=== PATIENT | female | born 1940 | race Caucasian/White ===

== ENCOUNTER 2018-08-02 14:14 | Inpatient (IN) ==
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
[2018-08-02 15:31] LABS: BASO# 0.03 X1000 (0.0-0.2); BASO% 0.5 % (0.0-0.8); EOS# 0.15 X1000 (0.0-0.7); EOS% 2.6 % (0.0-10.0); HEMATOCRIT 28.1 % (37.0-47.0); HEMOGLOBIN 9.2 g/dL (12.0-16.0); IMM GRAN# 0.09 X1000 (0.0-0.04); IMM GRAN% 1.6 % (0.0-0.5); LYMPH# 0.94 X1000 (1.2-3.4); LYMPH% 16.2 % (20.5-51.1); MCH 29.9 PG (27-31); MCHC 32.7 g/dL (33-37); MCV 91.2 FL (81-99); MONO# 0.76 X1000 (0.11-0.59); MONO% 13.1 % (1.7-9.3); MPV 8.9 FL (7.4-10.4); NEUT# 3.82 X1000 (1.4-6.5); PLT 298 X1000 (130-400); RBC 3.08 XMIL (4.2-5.4); RDW 14.3 % (11.5-14.5); WBC 5.79 X1000 (4.8-10.8)
[2018-08-02] MEDS ORDERED: ALBUTEROL NEB INH ONE (15:44)
[2018-08-02 15:46] LABS: AGAP 13; ALBUMIN 2.7 g/dL (3.5-5.0); ALKALINE PHOSPHATASE 82 U/L (32-104); BUN 21 mg/dL (8-22); CALCIUM 7.8 mg/dL (8.8-10.2); CHLORIDE 99 mmol/L (98-107); COSMO 272; CREATININE 0.7 mg/dL (0.5-0.9); ESTIMATED GFR > 60; GLUCOSE 88 mg/dL (70-104); GOT 53 U/L (10-30); GPT 33 U/L (10-36); POTASSIUM 3.5 mmol/L (3.5-5.1); SODIUM 135 mmol/L (136-145); TCO2 23 mmol/L (25-35); TOTAL BILIRUBIN 1.48 mg/dL (0.20-1.00); TOTAL PROTEIN 5.3 g/dL (6.3-8.3)
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
[2018-08-02] MEDS ORDERED: TYLENOL PO PRN (16:55)
[2018-08-02] MEDS ORDERED: DULCOLAX PR ONE (18:14)
[2018-08-02 18:27] LABS: URINE SOURCE CLEAN CATCH
[2018-08-02 18:37] LABS: BILIRUBIN URINE NEGATIVE (NEGATIVE); BLOOD URINE NEGATIVE (NEGATIVE); COLOR YELLOW; GLUCOSE URINE NEGATIVE (NEGATIVE); KETONE URINE TRACE mg/dL (NEGATIVE); LEUKOCYTES URINE SMALL (NEGATIVE); NITRITE URINE NEGATIVE (NEGATIVE); PH URINE 5.5; PROTEIN URINE TRACE mg/dL (NEGATIVE); SP GRAVITY URINE 1.014; TURBIDITY URINE HAZY (CLEAR); UROBILINOGEN URINE 3 mg/dL (NORMAL)
[2018-08-02 18:38] LABS: UR EPITHELIAL CELLS >10 /HPF (<10); URINE BACTERIA NEGATIVE /HPF; URINE RBC <10 /HPF (<10); URINE WBC <10 /HPF (<10)
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
[2018-08-02] MEDS: MUCOMYST 20% INH SCH (20:10)
[2018-08-02] MEDS: PULMICORT INH SCH (20:10)
[2018-08-02] MEDS: DUONEB (A & A) INH SCH ×2 (20:10→23:20)
[2018-08-02] MEDS: NS 1,000 ML IV SCH (21:03)
[2018-08-02] MEDS: ULTRAM PO PRN (21:15)
[2018-08-02] MEDS: MUCINEX PO SCH (21:15)
[2018-08-02] MEDS: ROCEPHIN 1 GM in NS 50 ML IV SCH (21:15)
[2018-08-02] MEDS: PERICOLACE PO SCH (21:15)
[2018-08-03] MEDS: DUONEB (A & A) INH SCH ×6 (03:30→23:30)
[2018-08-03] MEDS: MUCOMYST 20% INH SCH ×2 (07:29→19:30)
[2018-08-03] MEDS: PULMICORT INH SCH ×2 (07:29→19:30)
[2018-08-03 07:40] LABS: AGAP 12; ALB/GLOB RATIO 1.2; ALBUMIN 2.7 g/dL (3.5-5.0); ALKALINE PHOSPHATASE 72 U/L (32-104); BASO# 0.02 X1000 (0.0-0.2); BASO% 0.3 % (0.0-0.8); BUN 19 mg/dL (8-22); CALCIUM 7.5 mg/dL (8.8-10.2); CHLORIDE 98 mmol/L (98-107); COSMO 265; CREATININE 0.6 mg/dL (0.5-0.9); EOS# 0.07 X1000 (0.0-0.7); ESTIMATED GFR > 60; GLUCOSE 97 mg/dL (70-104); GOT 34 U/L (10-30); GPT 27 U/L (10-36); HEMOGLOBIN 8.4 g/dL (12.0-16.0); IMM GRAN# 0.05 X1000 (0.0-0.04); IMM GRAN% 0.7 % (0.0-0.5); LYMPH# 0.78 X1000 (1.2-3.4); MCH 29.3 PG (27-31); MCHC 32.3 g/dL (33-37); MCV 90.6 FL (81-99); MONO# 0.63 X1000 (0.11-0.59); MONO% 8.9 % (1.7-9.3); MPV 8.8 FL (7.4-10.4); NEUT# 5.53 X1000 (1.4-6.5); NEUT% 78.1 % (42.2-75.2); PLT 291 X1000 (130-400); POTASSIUM 3.6 mmol/L (3.5-5.1); RBC 2.87 XMIL (4.2-5.4); RDW 14.5 % (11.5-14.5); SODIUM 131 mmol/L (136-145); TCO2 21 mmol/L (25-35); TOTAL BILIRUBIN 1.22 mg/dL (0.20-1.00); TOTAL PROTEIN 4.9 g/dL (6.3-8.3); WBC 7.08 X1000 (4.8-10.8)
[2018-08-03] MEDS: PERICOLACE PO SCH ×2 (08:16→22:48)
[2018-08-03] MEDS: LOTREL 5/10 MG PO SCH (08:16)
[2018-08-03] MEDS: NAMENDA PO SCH (08:16)
[2018-08-03] MEDS: ZETIA PO SCH (08:16)
[2018-08-03] MEDS: CRESTOR PO SCH (08:16)
[2018-08-03] MEDS: MIRALAX PO SCH (08:16)
[2018-08-03] MEDS: MUCINEX PO SCH ×2 (08:17→22:49)
[2018-08-03] MEDS: LOVENOX SUBQ SCH (08:17)
[2018-08-03 10:52] LABS: ALLEN TEST YES; BE -0.8 mmoll (-3.0-3.0); BLOOD TYPE ARTERIAL; HCO3-(ACT) 24.2 mmoll (20.0-26.0); METHB 0.7 % (0.0-1.5); O2(CT) 11.7 mL/dL (15.0-23.0); O2HB 92.7 % (95.0-99.0); PCO2(98.6) 30 mmHg (35-45); PO2(98.6) 62 mmHg (60-100); SAMPLE BLOOD; SAO2 95.8 % (95.0-100.0); THB 8.9 g/dL (11.5-17.4); pH(98.6) 7.48 (7.35-7.45)
[2018-08-03 10:53] LABS: MODALITY CANNULA
[2018-08-03] MEDS: NS 1,000 ML IV SCH (11:23)
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
[2018-08-03] MEDS: ROCEPHIN 1 GM in NS 50 ML IV SCH (22:48)
[2018-08-03] MEDS: ULTRAM PO PRN (22:49)
[2018-08-03] MEDS: DULCOLAX PR PRN (22:49)
[2018-08-04] MEDS: TRAVATAN 0.004% OPH SOLN BOTH EYES SCH ×2 (02:14→21:08)
[2018-08-04] MEDS: NS 1,000 ML IV SCH ×2 (02:18→17:03)
[2018-08-04] MEDS: DUONEB (A & A) INH SCH ×6 (03:00→23:04)
[2018-08-04] MEDS: PULMICORT INH SCH ×2 (07:34→19:03)
[2018-08-04] MEDS: MUCOMYST 20% INH SCH ×2 (07:35→19:03)
[2018-08-04] MEDS: MIRALAX PO SCH (10:35)
[2018-08-04] MEDS: CRESTOR PO SCH (10:35)
[2018-08-04] MEDS: MUCINEX PO SCH ×2 (10:35→21:06)
[2018-08-04] MEDS: PERICOLACE PO SCH ×2 (10:35→21:05)
[2018-08-04] MEDS: LOVENOX SUBQ SCH (10:36)
[2018-08-04] MEDS: LOTREL 5/10 MG PO SCH (10:36)
[2018-08-04] MEDS: DULCOLAX PR PRN (10:36)
[2018-08-04] MEDS: NAMENDA PO SCH (10:36)
[2018-08-04] MEDS: ZETIA PO SCH (10:36)
[2018-08-04 12:44] LABS: AGAP 13; BUN 14 mg/dL (8-22); CALCIUM 7.5 mg/dL (8.8-10.2); CHLORIDE 103 mmol/L (98-107); COSMO 274; CREATININE 0.5 mg/dL (0.5-0.9); ESTIMATED GFR > 60; GLUCOSE 95 mg/dL (70-104); POTASSIUM 3.3 mmol/L (3.5-5.1); SODIUM 137 mmol/L (136-145); TCO2 21 mmol/L (25-35)
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
[2018-08-04] MEDS ORDERED: KLOR-CON PO ONE (15:22)
[2018-08-04] MEDS: NORCO-5 PO PRN (17:04)
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
[2018-08-04] MEDS: ROCEPHIN 1 GM in NS 50 ML IV SCH (21:06)
[2018-08-05] MEDS ORDERED: CALMOSEPTINE OINTMENT TOP PRN (03:15)
[2018-08-05] MEDS: DUONEB (A & A) INH SCH ×6 (03:19→23:30)
[2018-08-05] MEDS: NS 1,000 ML IV SCH ×2 (05:58→21:24)
[2018-08-05 07:07] LABS: BASO# 0.02 X1000 (0.0-0.2); BASO% 0.3 % (0.0-0.8); EOS# 0.27 X1000 (0.0-0.7); EOS% 3.5 % (0.0-10.0); HEMATOCRIT 27.8 % (37.0-47.0); HEMOGLOBIN 8.9 g/dL (12.0-16.0); IMM GRAN# 0.05 X1000 (0.0-0.04); IMM GRAN% 0.6 % (0.0-0.5); LYMPH# 1.27 X1000 (1.2-3.4); LYMPH% 16.3 % (20.5-51.1); MCH 29.5 PG (27-31); MCV 92.1 FL (81-99); MONO# 0.66 X1000 (0.11-0.59); MONO% 8.5 % (1.7-9.3); NEUT% 70.8 % (42.2-75.2); PLT 323 X1000 (130-400); RBC 3.02 XMIL (4.2-5.4); RDW 15.5 % (11.5-14.5); WBC 7.77 X1000 (4.8-10.8)
[2018-08-05] MEDS: PULMICORT INH SCH ×2 (08:00→19:25)
[2018-08-05] MEDS: MUCOMYST 20% INH SCH ×2 (08:00→19:25)
[2018-08-05 08:07] LABS: AGAP 12; BUN 10 mg/dL (8-22); CHLORIDE 107 mmol/L (98-107); COSMO 277; CREATININE 0.6 mg/dL (0.5-0.9); ESTIMATED GFR > 60; GLUCOSE 102 mg/dL (70-104); POTASSIUM 3.6 mmol/L (3.5-5.1); SODIUM 139 mmol/L (136-145); TCO2 20 mmol/L (25-35)
[2018-08-05] MEDS: LOVENOX SUBQ SCH (09:35)
[2018-08-05] MEDS: MIRALAX PO SCH (09:36)
[2018-08-05] MEDS: CRESTOR PO SCH (09:36)
[2018-08-05] MEDS: ZETIA PO SCH (09:37)
[2018-08-05] MEDS: PERICOLACE PO SCH ×2 (09:37→21:34)
[2018-08-05] MEDS: MUCINEX PO SCH ×2 (09:37→21:34)
[2018-08-05] MEDS: NAMENDA PO SCH (09:37)
[2018-08-05] MEDS: LOTREL 5/10 MG PO SCH (09:44)
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
--- NOTE | 2018-08-05 12:55 | Diag Imaging Result Doc PS360 ---
EXAM: CHEST-1 VIEW HISTORY: SOB TECHNIQUE: Chest single view COMPARISON: 08/02/2018 FINDINGS: There is a small left pleural effusion on the current exam. There is atelectasis in the left lung base. Mild increased perihilar markings persist and are unchanged. There are multiple right lateral rib fractures. No pneumothoraces. No cardiomegaly. Mild vascular distention. IMPRESSION: Right pleural effusion has developed in the left lung base with atelectasis and/or infiltrates. Electronically signed by Adelso Das 08/05/2018 12:53 PM
[2018-08-05] MEDS: SODIUM CHLORIDE 0.9% INJ SCH (16:48)
[2018-08-05] MEDS: NORCO-5 PO PRN (16:48)
[2018-08-05] MEDS: PROTONIX IV SCH (16:48)
[2018-08-05] MEDS: DULCOLAX PR PRN (21:27)
[2018-08-05] MEDS: ROCEPHIN 1 GM in NS 50 ML IV SCH (21:34)
[2018-08-05] MEDS: TRAVATAN 0.004% OPH SOLN BOTH EYES SCH (21:35)
[2018-08-06] MEDS: DUONEB (A & A) INH SCH ×6 (03:50→22:56)
--- NOTE | 2018-08-06 07:17 | Diag Imaging Result Doc PS360 ---
EXAM: CHEST-1 VIEW 08/06/2018 HISTORY: SOB TECHNIQUE: AP portable at 0558 COMMENT: There is hazy pulmonary edema over both lungs and denser opacity in the retrocardiac region of the left lower lobe. The heart size does not appear to be enlarged. Compared to 08/05/2018 the pulmonary edema is worse. IMPRESSION: Worsened pulmonary edema and/or pneumonia. Electronically signed by Tulio Bashir 08/06/2018 7:15 AM
[2018-08-06] MEDS: MUCOMYST 20% INH SCH ×2 (07:23→19:57)
[2018-08-06] MEDS: PULMICORT INH SCH ×2 (07:23→19:57)
[2018-08-06 07:39] LABS: BASO# 0.03 X1000 (0.0-0.2); BASO% 0.3 % (0.0-0.8); EOS# 0.25 X1000 (0.0-0.7); EOS% 2.4 % (0.0-10.0); HEMOGLOBIN 9.2 g/dL (12.0-16.0); IMM GRAN# 0.06 X1000 (0.0-0.04); IMM GRAN% 0.6 % (0.0-0.5); LYMPH# 1.28 X1000 (1.2-3.4); LYMPH% 12.4 % (20.5-51.1); MCH 29.3 PG (27-31); MCHC 31.7 g/dL (33-37); MCV 92.4 FL (81-99); MONO# 0.79 X1000 (0.11-0.59); MONO% 7.6 % (1.7-9.3); NEUT# 7.94 X1000 (1.4-6.5); NEUT% 76.7 % (42.2-75.2); PLT 351 X1000 (130-400); RBC 3.14 XMIL (4.2-5.4); WBC 10.35 X1000 (4.8-10.8)
[2018-08-06 08:09] LABS: AGAP 12; BUN 9 mg/dL (8-22); CALCIUM 7.8 mg/dL (8.8-10.2); CHLORIDE 105 mmol/L (98-107); COSMO 273; CREATININE 0.6 mg/dL (0.5-0.9); ESTIMATED GFR > 60; GLUCOSE 106 mg/dL (70-104); POTASSIUM 3.4 mmol/L (3.5-5.1); SODIUM 137 mmol/L (136-145); TCO2 20 mmol/L (25-35)
[2018-08-06] MEDS ORDERED: KLOR-CON PO ONE (08:19)
[2018-08-06] MEDS: CRESTOR PO SCH (10:10)
[2018-08-06] MEDS: PERICOLACE PO SCH ×2 (10:10→20:45)
[2018-08-06] MEDS: ZETIA PO SCH (10:10)
[2018-08-06] MEDS: LOTREL 5/10 MG PO SCH (10:11)
[2018-08-06] MEDS: NAMENDA PO SCH (10:11)
[2018-08-06] MEDS: MUCINEX PO SCH ×2 (10:12→20:45)
[2018-08-06] MEDS: MIRALAX PO SCH (10:12)
[2018-08-06] MEDS: LOVENOX SUBQ SCH (10:12)
[2018-08-06] MEDS ORDERED: ZYVOX 600 MG/D5W 600 MG/300 ML IVPB IV SCH (10:30)
[2018-08-06] MEDS ORDERED: MAXIPIME 2 GM in NS 100 ML IV SCH (13:00)
--- NOTE | 2018-08-06 14:21 | CONSULTATION ---
DATE OF CONSULTATION: 08/06/2018 CONCLUSION: The patient has bilateral infiltrates. I think that they do represent pneumonia, but there could be a component also of pulmonary venous congestion. Her latest chest x-ray shows the infiltrates are worsening. RECOMMENDATIONS: I agree with the decision to change the patient from Rocephin to a combination of Zyvox and cefepime. I have changed the Zyvox to p.o. and I have increased the cefepime to 2 g IV every 8 hours. DISCUSSION: The patient in the past approximately 5-6 days ago started coughing and wheezing. She did not have fever or shaking chills and she did not produce any sputum. Associated with the coughing and wheezing. The patient has been anorectic. She has also had a decreased frequency of passing stool. The patient's studies [place] [address], hemoglobin 9.2, and platelet count 351,000. Creatinine is 0.6, GFR is greater than 60. Blood cultures are negative. Urine culture was mixed. Chest x-ray, as mentioned above, shows worsening infiltrates. PAST MEDICAL HISTORY/REVIEW OF SYSTEMS: Eyes and Ears: She sees and hears okay. Neck: No stiffness. Respiratory: See present illness. Gastrointestinal: Present illness also. Genitourinary: No dysuria or flank pain. Cardiovascular: No chest pain or palpitations. Bones, joints, muscles: No swollen joints or myalgias. Endocrine: No diabetes or thyroid disease. Neurologic: No motor or sensory loss. No seizures. GOSPEL WORKER HISTORY: She is a 3, para 3, AB 0. She has had a hysterectomy and tubal ligation. PREVIOUS HOSPITALIZATIONS/OPERATIONS: She has had 3 labor and deliveries, a hysterectomy, tubal ligation, surgery on her right hip which was fractured, placement of a coronary artery stent. The patient fractured right hip and it was operated on. She has had placement of a coronary artery stent. She has also had 3 back surgeries. The patient recently had to have a left chest tube placed. MEDICAL DISEASES: Positive for hypertension. Negative for diabetes or stroke. INFECTIOUS DISEASE HISTORY: Positive for pneumonia and UTI. FAMILY HISTORY: Positive for diabetes mellitus, hypertension, myocardial infarction, stroke, and cancer. SOCIAL HISTORY[place] . She has a dog as a pet. She does not smoke cigarettes, drink alcoholic beverages or abuse drugs. ALLERGIES: She has no known drug allergies. HOME MEDICATIONS INCLUDE THE FOLLOWING: Ezetimibe, amlodipine/benazepril, also patient is taking memantine, methocarbamol, Lopressor, rosuvastatin and Travatan. PHYSICAL EXAMINATION: Vital Signs: Temperature is 97.4 degrees, pulse 90, respirations 14, blood pressure 100/70. Patient is 5 feet 3 inches tall, weighs 163 pounds. General: This is a slightly obese elderly female. She is in no acute distress. Head/eyes/ears/ nose/throat: She can hear my spoken words and see near objects. She does not have any white patches in her mouth. Neck: No meningismus. Lungs: There were bilateral rhonchi. Cardiovascular: Heart rate is regular. Abdomen: Soft and nontender. Extremities: No erythema. There is some leg edema bilaterally. Neurologic: The patient is awake. She can move her extremities. There is no tremor. The patient can move her arms and legs. The patient's memory as regarding her medical history was slightly decreased. Integument: No rash noted. Thank you for the consult. cc: Tavo Navarro MD [facility] INSANEKenyatta
[2018-08-06] MEDS: LASIX IV SCH (16:26)
[2018-08-06] MEDS: SODIUM CHLORIDE 0.9% INJ SCH (16:26)
[2018-08-06] MEDS: MAXIPIME 2 GM in NS 100 ML IV SCH (16:26)
[2018-08-06] MEDS: PROTONIX IV SCH (16:27)
[2018-08-06] MEDS: NORCO-5 PO PRN (16:40)
--- NOTE | 2018-08-06 19:47 | PROGRESS NOTE ---
DATE: 08/06/2018 SUBJECTIVE: The patient is resting comfortably in bed. She states that she still feels short of breath and has some rattling in her chest. OBJECTIVE: Vital Signs: Temperature 98.9 degrees, blood pressure 115/67, heart rate 92, respirations 18, oxygen saturation 98% on 3 L nasal cannula. General: This is a chronically ill- appearing elderly female, lying in bed, in no acute distress. Heart: S1, S2 normal. Lungs: Equal air entry bilaterally. No crackles. No rales. Abdomen: Positive bowel sounds. Soft, nontender, nondistended. Extremities: No edema, no cyanosis. Neurologic: The patient is alert and oriented. LABS: White blood cell count 10, hemoglobin 9.2, hematocrit 29, platelets 351,000. Sodium 137, potassium 3.4, chloride 105, CO2 20, BUN 9, creatinine 0.6, glucose 106, calcium 7.8. ASSESSMENT AND PLAN: 1. Pneumonia. The patient's IV antibiotics were adjusted. Further management as per Dr. Navarro. 2. Acute pulmonary edema. We will start the patient on diuretic therapy. 3. Hypokalemia. We will replace the patient's potassium. 4. Severe protein calorie malnutrition. Continue the current diet. 5. Dementia. Continue on Namenda. 6. Gastrointestinal prophylaxis. Continue on Protonix. 7. Deep vein thrombosis prophylaxis. Continue on Lovenox. cc: Bella Raines MD
[2018-08-06] MEDS: ZYVOX PO SCH (20:46)
[2018-08-06] MEDS: TRAVATAN 0.004% OPH SOLN BOTH EYES SCH (20:47)
[2018-08-07] MEDS: MAXIPIME 2 GM in NS 100 ML IV SCH ×3 (00:54→15:40)
[2018-08-07] MEDS: DUONEB (A & A) INH SCH ×6 (03:16→23:00)
[2018-08-07] MEDS: LASIX IV SCH ×2 (04:54→15:44)
[2018-08-07] MEDS: PULMICORT INH SCH ×2 (07:23→19:20)
[2018-08-07] MEDS: MUCOMYST 20% INH SCH ×2 (07:24→19:20)
[2018-08-07 07:29] LABS: BASO# 0.02 X1000 (0.0-0.2); BASO% 0.3 % (0.0-0.8); EOS# 0.22 X1000 (0.0-0.7); HEMATOCRIT 30.7 % (37.0-47.0); HEMOGLOBIN 9.9 g/dL (12.0-16.0); IMM GRAN# 0.03 X1000 (0.0-0.04); IMM GRAN% 0.4 % (0.0-0.5); LYMPH# 1.13 X1000 (1.2-3.4); LYMPH% 15.2 % (20.5-51.1); MCH 29.8 PG (27-31); MCHC 32.2 g/dL (33-37); MCV 92.5 FL (81-99); MONO# 0.65 X1000 (0.11-0.59); MONO% 8.8 % (1.7-9.3); MPV 9.1 FL (7.4-10.4); NEUT# 5.37 X1000 (1.4-6.5); NEUT% 72.3 % (42.2-75.2); PLT 379 X1000 (130-400); RBC 3.32 XMIL (4.2-5.4); RDW 15.9 % (11.5-14.5); WBC 7.42 X1000 (4.8-10.8)
[2018-08-07 07:42] LABS: AGAP 11; BUN 9 mg/dL (8-22); CALCIUM 8.5 mg/dL (8.8-10.2); CHLORIDE 103 mmol/L (98-107); COSMO 271; CREATININE 0.7 mg/dL (0.5-0.9); ESTIMATED GFR > 60; GLUCOSE 110 mg/dL (70-104); MAGNESIUM 1.6 mg/dL (1.5-2.7); PHOSPHORUS 3.6 mg/dL (2.7-4.5); POTASSIUM 3.4 mmol/L (3.5-5.1); SODIUM 136 mmol/L (136-145); TCO2 22 mmol/L (25-35)
--- NOTE | 2018-08-07 07:48 | Diag Imaging Result Doc PS360 ---
EXAM: CHEST-PORTABLE INDICATION: dyspnea TECHNIQUE: One view COMPARISON: 08/06/2018 FINDINGS: The mild opacities seen bilaterally with a basilar predominance are approximately stable. No new consolidation is identified. Cardiac silhouette is stable. IMPRESSION: Essentially stable chest. Electronically signed by Pete Mccord 08/07/2018 7:46 AM
[2018-08-07 08:21] LABS: ALLEN TEST NO; BE 0.8 mmoll (-3.0-3.0); BLOOD TYPE ARTERIAL; HCO3-(ACT) 25.5 mmoll (20.0-26.0); METHB 1.2 % (0.0-1.5); O2(CT) 14.2 mL/dL (15.0-23.0); PCO2(98.6) 30 mmHg (35-45); PO2(98.6) 64 mmHg (60-100); SAMPLE BLOOD; SAO2 96.2 % (95.0-100.0); THB 10.8 g/dL (11.5-17.4)
[2018-08-07 08:22] LABS: MODALITY CANNULA
--- NOTE | 2018-08-07 08:44 | ECHO REPORT ---
ORDER DATE: 08/06/2018 MEASUREMENTS: Left ventricle end-diastolic 3.6. End systolic diameter 2.5, septal thickness 1.1. Aortic root 2.9. Left atrium 3.8. SUMMARY: 1. Very difficult study for interpretation and limited study. 2. Aortic valve is not well imaged, but appears to be sclerotic. Moderately heavy mitral annular calcification is demonstrated. There is mild mitral regurgitation. Tricuspid valve is without evidence of structural abnormality. Pulmonic valve is not seen. Aortic root is grossly normal in size. 3. Grossly normal left ventricular dimensions suggested. Estimated left ventricular ejection fraction appears to be at least 50%. Regional wall motion analysis is challenging given limitations of the study. Left atrium, right atrium, right ventricle are grossly normal in size. 4. No pericardial effusion. 5. Appearance of inferior vena cava suggests normal central venous pressure. cc: MD Bella Paula MD
[2018-08-07] MEDS: LOTREL 5/10 MG PO SCH (08:50)
[2018-08-07] MEDS: MIRALAX PO SCH (08:51)
[2018-08-07] MEDS: MUCINEX PO SCH ×2 (08:51→21:41)
[2018-08-07] MEDS: ZYVOX PO SCH (08:52)
[2018-08-07] MEDS: CRESTOR PO SCH (08:52)
[2018-08-07] MEDS: PERICOLACE PO SCH ×2 (08:52→21:41)
[2018-08-07] MEDS: ZETIA PO SCH (08:52)
[2018-08-07] MEDS: NAMENDA PO SCH (08:52)
[2018-08-07] MEDS: LOVENOX SUBQ SCH (08:53)
--- NOTE | 2018-08-07 11:15 | PROGRESS NOTE ---
DATE: 08/07/2018 SUBJECTIVE: The patient is resting comfortably in bed. She complains of wheezing and shortness of breath. OBJECTIVE: Vital Signs: Temperature 97.9, blood pressure 163/59, heart rate 77, respirations 19, O2 saturations 96% on 3 L nasal cannula output. General: This is a chronically ill-appearing, elderly female, lying in bed in no acute distress. Head: Normocephalic, atraumatic. Heart: S1, S2 normal. Regular rate and rhythm. Lungs: Coarse breath sounds with rhonchi and wheezes. Abdomen: Positive bowel sounds. Soft, nontender, nondistended. Extremities: 1+ edema. No cyanosis. No calf tenderness. Neurologic: The patient is alert and oriented x3. LABS: Sodium 136, potassium 3.4, chloride 103, CO2 of 22, BUN 9, creatinine 0.7, glucose 110, calcium 8.5, magnesium 1.6, phosphorus 3.6. Chest x-ray shows bilateral opacities. ASSESSMENT AND PLAN: 1. Pneumonia. Continue with IV antibiotics and bronchodilator therapy as directed by Dr. Navarro. 2. Acute pulmonary edema. Continue with IV Lasix. 3. Hypokalemia. Will replace the patient's potassium. 4. Hypomagnesemia. Will replace the patient's magnesium. 5. Dementia. Continue on Namenda. 6. Anemia of chronic disease. Stable. 7. Volume overload. The patient has an ejection fraction of 50%. We will continue with diuretic therapy. 8. Deep vein thrombosis prophylaxis. Continue on Lovenox. cc: Bella Raines MD
[2018-08-07] MEDS: SODIUM CHLORIDE 0.9% INJ SCH (15:40)
[2018-08-07] MEDS: PROTONIX IV SCH (15:40)
[2018-08-07] MEDS: NORCO-5 PO PRN (19:59)
[2018-08-07] MEDS ORDERED: GAMUNEX-C 10% IV ONE (20:00)
[2018-08-07] MEDS ORDERED: POTASSIUM CHLORIDE 20% LIQUID PO ONE (20:00)
[2018-08-07] MEDS: LEVAQUIN PO SCH (21:41)
[2018-08-07] MEDS: TRAVATAN 0.004% OPH SOLN BOTH EYES SCH (21:48)
[2018-08-08] MEDS: DUONEB (A & A) INH SCH ×6 (03:00→23:25)
[2018-08-08] MEDS: LASIX IV SCH ×2 (03:14→17:33)
--- NOTE | 2018-08-08 03:45 | INFECTIOUS DISEASE PROGRESS NO ---
DATE: 08/07/2018 PRESENT ILLNESS: Initially, I thought the patient has bilateral pneumonia. However, her most recent chest x-rays do not seem to show much in the way of pneumonia. There may be a few nodules and there is a possibility of pulmonary venous congestion. In addition to that, the patient's procalcitonin came back as less than 0.1, which would make bacterial pneumonia extremely unlikely. I think that the patient may have had bronchitis and/or pulmonary venous congestion as the cause of her cough and shortness of breath. In addition, her IgG level is low at 464 which would predispose the patient to get infection and make it more difficult to clear it. MEDICATIONS: Currently, the patient is getting a combination of cefepime and Zyvox. PHYSICAL EXAMINATION: Vital Signs: Temperature is 97.8 degrees, pulse 97, respirations 21, blood pressure 145/62. General: This is an ill-appearing, elderly female. She is in no acute distress. The patient is slightly dyspneic, even at rest. Head, Eyes, Ears, Nose, and Throat: She can hear my spoken words and see near objects. I do not see any white patches on her tongue. Cardiovascular: Regular heart rate. Abdomen: Soft and nontender. Lungs: There were bilateral rhonchi and wheezes. Neurologic: The patient is alert. She can move her extremities. There is no tremor. LAB AND X-RAY: Chest x-ray shows mild opacities bilaterally. IgG is level is 464, IgA is 213. Blood cultures are sterile. Urine culture is mixed. Procalcitonin, as I mentioned earlier, is less than 0.1. The patient's blood gases have a pH of 7.5, a pO2 of 64, and a pCO2 of 30. Creatinine is 0.7. GFR is greater than 60. The patient's CBC shows a white count of 7420, hemoglobin 9.9, platelet count 379,000. ASSESSMENT AND PLAN: As mentioned above, the patient does not have a bacterial pneumonia. She may have a bronchitis. She also has an immunoglobulin deficiency. My plan now is to stop the cefepime and Zyvox, and start the patient on Levaquin. Also, I am going to give the patient an infusion of IVIG. Hopefully, if she is looking better tomorrow, she can be discharged and I will plan to see her in followup in the office. cc: Tavo Navarro MD
[2018-08-08 07:07] LABS: BASO# 0.02 X1000 (0.0-0.2); BASO% 0.3 % (0.0-0.8); EOS% 2.9 % (0.0-10.0); HEMATOCRIT 31.6 % (37.0-47.0); HEMOGLOBIN 10.2 g/dL (12.0-16.0); IMM GRAN# 0.03 X1000 (0.0-0.04); IMM GRAN% 0.4 % (0.0-0.5); LYMPH% 14.7 % (20.5-51.1); MCH 29.7 PG (27-31); MCHC 32.3 g/dL (33-37); MCV 91.9 FL (81-99); MONO# 0.71 X1000 (0.11-0.59); MONO% 10.5 % (1.7-9.3); MPV 9.3 FL (7.4-10.4); NEUT# 4.83 X1000 (1.4-6.5); NEUT% 71.2 % (42.2-75.2); PLT 409 X1000 (130-400); RBC 3.44 XMIL (4.2-5.4); RDW 15.9 % (11.5-14.5); WBC 6.79 X1000 (4.8-10.8)
[2018-08-08 07:31] LABS: AGAP 13; BUN 10 mg/dL (8-22); CALCIUM 8.8 mg/dL (8.8-10.2); CHLORIDE 98 mmol/L (98-107); COSMO 270; CREATININE 0.7 mg/dL (0.5-0.9); ESTIMATED GFR > 60; GLUCOSE 105 mg/dL (70-104); POTASSIUM 3.7 mmol/L (3.5-5.1); SODIUM 135 mmol/L (136-145); TCO2 24 mmol/L (25-35)
[2018-08-08] MEDS: MUCOMYST 20% INH SCH ×2 (07:34→19:52)
[2018-08-08] MEDS: PULMICORT INH SCH ×2 (07:34→19:52)
[2018-08-08] MEDS: LOVENOX SUBQ SCH (09:41)
[2018-08-08] MEDS: MIRALAX PO SCH (09:41)
[2018-08-08] MEDS: MUCINEX PO SCH ×2 (09:41→21:42)
[2018-08-08] MEDS: LOTREL 5/10 MG PO SCH (09:41)
[2018-08-08] MEDS: NAMENDA PO SCH (09:41)
[2018-08-08] MEDS: CRESTOR PO SCH (09:41)
[2018-08-08] MEDS: ZETIA PO SCH (09:41)
[2018-08-08] MEDS: PERICOLACE PO SCH ×2 (09:41→21:42)
--- NOTE | 2018-08-08 13:42 | PROGRESS NOTE ---
DATE: 08/08/2018 SUBJECTIVE: The patient is resting comfortably in bed. She states that she feels a lot better today. She said she is not wheezing as much. OBJECTIVE: Vital Signs: Temperature 97.6 degrees, blood pressure 167/64, heart rate 80, respirations 20, O2 saturation is 100% on 1 liter nasal cannula. General: This is a chronically ill-appearing elderly female, lying in bed in no acute distress. Heart: S1, S2 normal. Regular rate and rhythm. Lungs: Equal air entry bilaterally. No wheezing. No rales. Abdomen: Positive bowel sounds. Soft, nontender, nondistended. Extremities: No edema, no cyanosis. Neurologic: The patient is alert and oriented x3. LABS: Hemoglobin 10, hematocrit 31, platelets 409, white blood cell count 6.7. Sodium 135, potassium 3.7, chloride 98, CO2 24, BUN 10, creatinine 0.7 glucose 105. ProBNP 10,184. ASSESSMENT AND PLAN: 1. Pneumonia. Continue with antibiotic therapy as directed by Dr. Navarro. 2. Immunoglobulin deficiency. The patient received intravenous immunoglobulin yesterday. 3. Acute pulmonary edema. Continue with diuretic therapy. 4. Dementia. Continue on Namenda. 5. Anemia of chronic disease. Stable. 6. Deep vein thrombosis prophylaxis. Continue on Lovenox. cc: Bella Raines MD
[2018-08-08] MEDS: PROTONIX IV SCH (17:32)
[2018-08-08] MEDS: SODIUM CHLORIDE 0.9% INJ SCH (17:32)
[2018-08-08] MEDS: NORCO-5 PO PRN (19:13)
[2018-08-08] MEDS: LEVAQUIN PO SCH (21:41)
[2018-08-08] MEDS: TRAVATAN 0.004% OPH SOLN BOTH EYES SCH (21:43)
[2018-08-09] MEDS: DUONEB (A & A) INH SCH ×4 (03:33→15:23)
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
[2018-08-09] MEDS: LASIX IV SCH (06:14)
[2018-08-09 06:50] LABS: BASO# 0.02 X1000 (0.0-0.2); BASO% 0.3 % (0.0-0.8); EOS# 0.21 X1000 (0.0-0.7); EOS% 3.6 % (0.0-10.0); HEMATOCRIT 30.2 % (37.0-47.0); HEMOGLOBIN 9.7 g/dL (12.0-16.0); IMM GRAN# 0.02 X1000 (0.0-0.04); IMM GRAN% 0.3 % (0.0-0.5); LYMPH# 1.14 X1000 (1.2-3.4); LYMPH% 19.6 % (20.5-51.1); MCH 29.6 PG (27-31); MCHC 32.1 g/dL (33-37); MCV 92.1 FL (81-99); MONO# 0.67 X1000 (0.11-0.59); MONO% 11.5 % (1.7-9.3); MPV 8.8 FL (7.4-10.4); NEUT# 3.75 X1000 (1.4-6.5); NEUT% 64.7 % (42.2-75.2); PLT 402 X1000 (130-400); RBC 3.28 XMIL (4.2-5.4); RDW 15.7 % (11.5-14.5); WBC 5.81 X1000 (4.8-10.8)
[2018-08-09 07:20] LABS: AGAP 14; BUN 14 mg/dL (8-22); CALCIUM 8.2 mg/dL (8.8-10.2); CHLORIDE 97 mmol/L (98-107); COSMO 272; CREATININE 0.8 mg/dL (0.5-0.9); ESTIMATED GFR > 60; GLUCOSE 94 mg/dL (70-104); POTASSIUM 3.5 mmol/L (3.5-5.1); SODIUM 136 mmol/L (136-145); TCO2 25 mmol/L (25-35)
[2018-08-09] MEDS: PULMICORT INH SCH (07:28)
[2018-08-09] MEDS: MUCOMYST 20% INH SCH (07:28)
[2018-08-09] MEDS: LOVENOX SUBQ SCH (09:38)
[2018-08-09] MEDS: MIRALAX PO SCH (09:38)
[2018-08-09] MEDS: NAMENDA PO SCH (09:39)
[2018-08-09] MEDS: MUCINEX PO SCH (09:39)
[2018-08-09] MEDS: CRESTOR PO SCH (09:39)
[2018-08-09] MEDS: PERICOLACE PO SCH (09:39)
[2018-08-09] MEDS: LOTREL 5/10 MG PO SCH (09:40)
[2018-08-09] MEDS: ZETIA PO SCH (09:40)
--- NOTE | 2018-08-09 11:09 | PROGRESS NOTE ---
DATE: 08/09/2018 SUBJECTIVE: The patient is resting comfortably in bed. She has no complaints. No acute events noted overnight. She is now on room air. OBJECTIVE: Vital Signs: Temperature 98.1 degrees, blood pressure 142/60, heart rate 84, respirations 18, O2 saturations 100% on room air. General: This is a chronically ill-appearing elderly female lying in bed in no acute distress. Heart: S1, S2 normal. Regular rate and rhythm. Lungs: Clear to auscultation bilaterally. Abdomen: Positive bowel sounds. Soft, nontender, nondistended. Extremities: No edema no cyanosis. Neurologic: The patient is alert and oriented x3. LABS: White blood cell count 5.8, hemoglobin 9.7, hematocrit 30, platelets 402,000, sodium 136, potassium 3.5, chloride 97, CO2 25, BUN 14, creatinine 0.8, glucose 94. ASSESSMENT AND PLAN: 1. Pneumonia. The patient has been transitioned to oral Levaquin, which she will be discharged home on. She will follow up with Dr. Tavo Navarro as outpatient. 2. Acute pulmonary edema. Continue on diuretic therapy. 3. Immunoglobulin deficiency. The patient received IVIG day before yesterday. Dr. Navarro will be following her levels as outpatient. 4. Dementia. Continue on Namenda. 5. Anemia of chronic disease. Stable. 6. Disposition. The patient will be discharged home today. cc: Bella Raines MD
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
[2018-08-09] MEDS: NORCO-5 PO PRN (16:01)
[2018-08-09] MEDS: PROTONIX IV SCH (17:27)
[2018-08-09 17:32] VITALS: BP 131/62
== END 2018-08-09 18:03 | DRG 194 ==
LOC: SUPCPDRO → ED 14:14 → 3N 18:24 → SUATTDRO 18:24
PROVIDERS: ATTEND Internal Medicine
CPT/HCPCS: 36415; 71010; 71045; 80048; 80053; 81001; 82784; 82805; 83605; 83735; 83880; 84100; 84132; 84134; 84145; 85025; 87040; 87088; 93306; 94640; 94761; 94799; 97110; 97116; 97162; 97166; 97530; 99285; 99291; A9270; C9113; J0692; J0696; J1561; J1650; J1940; J7030; S0164